=== PATIENT | male | born 1950 | race Caucasian/White ===

== ENCOUNTER 2020-03-27 10:58 | Emergency (ER) | payer MEDICARE, SELFPAY ==
[2020-03-27] VITALS (18 sets, daily range): BP systolic 113–166; BP diastolic 74–106; PULSE 68–150; RESP 12–27; TEMP 36.6; O2SAT 88–99; BMI 27.7
--- NOTE | 2020-03-27 11:04 | DI.RAD.S_ITS ---
PROCEDURE: XR CHEST 2V INDICATIONS: shortness of breath TECHNIQUE: 2 views of the chest were acquired. COMPARISON: None. FINDINGS: Surgical changes and devices: None. Lungs and pleura: There is mild pulmonary vascular congestion. No definite focal infiltrate. Left basilar atelectasis is seen. No pleural effusions or pneumothorax. Mediastinum: Mediastinal contours are normal. Heart size is normal. Bones and chest wall: No suspicious bony abnormalities. Soft tissues appear unremarkable. IMPRESSION: Mild pulmonary vascular congestion and left basilar atelectasis. No definite focal infiltrate. No pleural effusion or pneumothorax. Dictated by: Emiliano Armstrong M.D. on 03/27/2020 at 11:54 Approved by: Emiliano Armstrong M.D. on 03/27/2020 at 11:54
[2020-03-27 11:38] LABS: Add Manual Diff / Slide Review NO; Basophils Absolute Auto 100 /uL (0-100); Basophils Percent Auto 0.6 % (0-2); Eosinophils Absolute Auto 100 /uL (0-450); Eosinophils Percent Auto 1.3 % (2-4); Hematocrit 46.2 % (41-53); Hemoglobin 15.4 g/dL (13.5-17.5); Lymphocytes Absolute Auto 1700 /uL (1100-4500); Lymphocytes Percent Auto 17.6 % (25-40); Mean Corpuscular HGB Conc 33.3 % (30-36); Mean Corpuscular Hemoglobin 31.2 PG (26-34); Mean Corpuscular Volume 93.6 fL (80-100); Monocytes Absolute Auto 600 /uL (0-900); Monocytes Percent Auto 5.9 % (3-14); Neutrophils Absolute Auto 7400 /uL (1500-7000); Neutrophils Percent Auto 74.6 % (50-75); Platelet Count 181 X10^3/uL (150-400); Red Blood Cell Count 4.93 X10^6/uL (4.5-5.9); Red Cell Distribution Width 13.8 % (11.6-14.8); White Blood Cell Count 9.9 X10^3/uL (4.5-11.0)
--- NOTE | 2020-03-27 11:48 | ED.SOB ---
HPI - SOB/Dyspnea General Chief Complaint: Shortness of Breath/Dyspnea Stated Complaint: breathing issues Time Seen by Provider: 03/27/20 11:31 Source: patient Mode of arrival: Wheelchair Limitations: no limitations History of Present Illness HPI Narrative: PATIENT IS A 69-YEAR-OLD MALE WHO presents with shortness of breath ongoing for last 5-7 days. He states that he has had intermittent chest discomfort but nothing he could handle. He felt like today his breathing was getting worse. He denies any orthopnea he has had intermittent cough that is nonproductive as well no fever. No lower extremity edema Both he and his protect for COVID this week and came back negative. He is found to be in AFib with RVR, he has no known previous history of atrial fibrillation. [facility] but has not [facility] them in a number of years and states that he is healthy. MD Complaint: shortness of breath Onset (ago): day(s) Relieving factors: nothing Exacerbating factors: exertion Related Data Allergies Allergy/AdvReac Type Severity Reaction Status Date / Time No Known Drug Allergies Allergy Verified 03/27/20 11:00 Review of Systems Review of Systems Narrative: GENERAL: Denies chills, fatigue, malaise, fever, sweats, travel HEENT: Denies sinus pain, ear pain, sore throat, difficulty swallowing, neck pain RESPIRATORY: See HPI CARDIOVASCULAR: Denies chest pain, palpitations, orthopnea, edema GASTROINTESTINAL: Denies nausea, vomiting, abdominal pain, diarrhea, constipation, melena. : Denies dysuria, frequency, incontinence, hematuria, urinary retention, flank pain. MUSCULOSKELETAL: Denies weakness, joint pain, or bony pain SKIN: No rash, no erythema, no pruritus NEUROLOGIC: Denies weakness, dizziness, headache, numbness, change in speech, confusion PSYCHIATRIC: No concerning psychosocial issues. 12 point review of systems is negative except for those stated above and HPI Patient History Medical History Patient denies medical problems Social History Smoking Status: Unknown if ever smoked Smoking Status: Unknown if ever smoked alcohol intake frequency: a few times a week Substance Use Type: does not use Exam Initial Vital Signs Initial Vital Signs: Vital Signs Temperature 97.9 F 03/27/20 11:00 Pulse Rate 68 03/27/20 11:00 Respiratory Rate 17 03/27/20 11:00 Blood Pressure 131/89 03/27/20 11:00 Pulse Oximetry 94 03/27/20 11:00 GENERAL: Well-appearing, well-nourished and in no acute distress. HEENT: Head atraumatic,EOMI, pupils reactive, face symmetric, moist mucous membranes CARDIOVASCULAR: Irregularly irregular tachycardic RESPIRATORY: Breath sounds equal bilaterally, no wheezes rales or rhonchi. ABDOMEN: Soft, nontender. Normoactive bowel sounds all 4 quadrants. No guarding or rebound. EXTREMITIES: Normal range of motion, no clubbing or edema. Neurovascularly intact NEUROLOGICAL: Alert and oriented x4.Normal gait and speech. SKIN: Warm, dry, no laceration, no petechiae, no rashes or lesions. Course Orders Ordered: ED Orders 03/27/20 11:04 XR chest 2V Stat EKG-12 Lead Stat Measure peak expiratory flow ONCE RT Consult Eval and Treat Now 03/27/20 11:30 Complete Blood Count AUTO DIFF Stat Comprehensive Metabolic Panel Stat Lactate (Lactic Acid) Stat NT-proBNP (BNP-Adult 18+) Stat Troponin & CK Cardiac Panel Stat 03/27/20 12:36 COVID19 Stat 03/27/20 13:07 NT-proBNP (BNP-Adult 18+) Stat 03/27/20 15:42 Troponin I Stat 03/27/20 18:17 CT angio chest PE protocol Stat 03/27/20 18:20 Partial Thromboplastin Time Stat 03/27/20 18:30 Partial Thromboplastin Time Q6H Discontinued Medications Diltiazem HCl (Diltiazem 5 Mg/Ml Sdv) 10 mg IV NOW ONE Stop: 03/27/20 12:08 Last Admin: 03/27/20 12:19 Dose: 10 mg Documented by: MMINOR Furosemide (Furosemide 40 Mg/4 Ml Vial) 20 mg IV NOW ONE Stop: 03/27/20 12:47 Last Admin: 03/27/20 12:50 Dose: 20 mg Documented by: MMINOR Heparin Sodium (Porcine) (Heparin 5,000 Unit/Ml Vial) 7,500 unit IV NOW ONE Stop: 03/27/20 18:18 Last Admin: 03/27/20 18:21 Dose: 7,500 unit Documented by: JEFFRYSUDHAKAR DILTIAZEM (Diltiazem 125 Mg/125 Ml-D5w) 125 mg in 125 mls @ 5 mls/hr IV TITRATE BLANCA; Protocol Last Titration: 03/27/20 18:28 Dose: 10 mg/hr, 10 mls/hr Documented by: Titration: 03/27/20 14:08 Dose: 10 mg/hr, 10 mls/hr Documented by: Admin: 03/27/20 12:51 Dose: 5 mg/hr, 5 mls/hr Documented by: MMINOR Heparin Sodium/Dextrose (Heparin Drip) 25,000 unit in 500 mls @ 20 mls/hr IV CONT BLANCA; Protocol Last Titration: 03/27/20 18:29 Dose: 1,000 units/hr, 20 mls/hr Documented by: Admin: 03/27/20 18:28 Dose: 1,000 units/hr, 20 mls/hr Documented by: MMMARYR Vital Signs Vital signs: Vital Signs - 8 hr 03/27/20 11:44 03/27/20 12:00 03/27/20 12:30 Pulse Rate 150 H 133 H 130 H Respiratory Rate 27 H 16 23 Blood Pressure 166/101 H 144/89 H 140/102 H Pulse Oximetry 88 L 94 93 03/27/20 13:00 03/27/20 13:30 03/27/20 14:00 Pulse Rate 126 H 127 H 130 H Respiratory Rate 25 H 12 22 Blood Pressure 152/85 H 147/91 H Pulse Oximetry 94 95 93 03/27/20 14:30 03/27/20 14:50 03/27/20 15:00 Pulse Rate 103 H 132 H 86 Respiratory Rate 18 23 Blood Pressure 125/83 113/77 Pulse Oximetry 92 91 91 03/27/20 15:30 03/27/20 16:00 03/27/20 16:30 Pulse Rate 84 84 127 H Respiratory Rate 25 H 24 Blood Pressure 122/75 133/74 142/84 H Pulse Oximetry 91 90 L 89 L 03/27/20 17:00 03/27/20 17:30 Pulse Rate 98 H 93 H Respiratory Rate 25 H 21 Blood Pressure 116/80 121/75 Pulse Oximetry 92 91 MDM - SOB/Dyspnea Lab Data Attestation: I reviewed the patient's lab results. Result diagrams: 03/27/20 11:30 03/27/20 11:30 Labs: Lab Results 03/27/20 03/27/20 03/27/20 Range/Units 11:30 11:30 11:30 WBC 9.9 (4.5-11.0) X10^3/uL RBC 4.93 (4.5-5.9) X10^6/uL Hgb 15.4 (13.5-17.5) g/dL Hct 46.2 (41-53) % MCV 93.6 (80-100) fL MCH 31.2 (26-34) PG MCHC 33.3 (30-36) % RDW 13.8 (11.6-14.8) % Plt Count 181 (150-400) X10^3/uL Neut % (Auto) 74.6 (50-75) % Lymph % (Auto) 17.6 L (25-40) % [place] % (Auto) 5.9 (3-14) % Eos % (Auto) 1.3 L (2-4) % Baso % (Auto) 0.6 (0-2) % Neut # (Auto) 7400 H (4998-6082) /uL Lymph # (Auto) 1700 (4174-7747) /uL [place] # (Auto) 600 (0-900) /uL Eos # (Auto) 100 (0-450) /uL Baso # (Auto) 100 (0-100) /uL APTT (26.4-36.2) SECONDS Sodium 140 (137-145) mmol/L Potassium 4.2 (3.4-5.1) mmol/L Chloride 108 H (98-107) mmol/L Carbon Dioxide 23 (22-32) mmol/L BUN 19 (9-20) mg/dL Creatinine 0.88 (0.66-1.25) mg/dL Estimated GFR > 60.0 (>60) mL/min BUN/Creatinine Ratio 21.6 (6-22) Glucose 126 H (80-110) mg/dL Lactate 1.9 (0.7-2.1) mmol/L Calcium 9.1 (8.4-10.2) mg/dL Total Bilirubin 0.8 (0.2-1.3) mg/dL AST 24 (17-59) IU/L ALT 18 (<50) IU/L Alkaline Phosphatase 133 H (38-126) U/L Total Creatine Kinase (55-170) U/L CK-MB (CK-2) CK-MB (CK-2) Rel Index Troponin I (0.01-0.034) ng/mL NT-Pro-B Natriuret Pep (<125) pg/mL Total Protein 7.6 (6.3-8.2) g/dL Albumin 4.2 (3.5-5.0) g/dL Globulin 3.4 (1.7-4.1) g/dL Albumin/Globulin Ratio 1.2 (1.0-2.8) SARS-CoV-2 (PCR) (Negative) 03/27/20 03/27/20 03/27/20 Range/Units 11:30 11:30 12:36 WBC (4.5-11.0) X10^3/uL RBC (4.5-5.9) X10^6/uL Hgb (13.5-17.5) g/dL Hct (41-53) % MCV (80-100) fL MCH (26-34) PG MCHC (30-36) % RDW (11.6-14.8) % Plt Count (150-400) X10^3/uL Neut % (Auto) (50-75) % Lymph % (Auto) (25-40) % [place] % (Auto) (3-14) % Eos % (Auto) (2-4) % Baso % (Auto) (0-2) % Neut # (Auto) (9714-4762) /uL Lymph # (Auto) (3377-3064) /uL [place] # (Auto) (0-900) /uL Eos # (Auto) (0-450) /uL Baso # (Auto) (0-100) /uL APTT (26.4-36.2) SECONDS Sodium (137-145) mmol/L Potassium (3.4-5.1) mmol/L Chloride (98-107) mmol/L Carbon Dioxide (22-32) mmol/L BUN (9-20) mg/dL Creatinine (0.66-1.25) mg/dL Estimated GFR (>60) mL/min BUN/Creatinine Ratio (6-22) Glucose (80-110) mg/dL Lactate (0.7-2.1) mmol/L Calcium (8.4-10.2) mg/dL Total Bilirubin (0.2-1.3) mg/dL AST (17-59) IU/L ALT (<50) IU/L Alkaline Phosphatase (38-126) U/L Total Creatine Kinase 53 L (55-170) U/L CK-MB (CK-2) TNP CK-MB (CK-2) Rel Index TNP Troponin I 0.186 H* (0.01-0.034) ng/mL NT-Pro-B Natriuret Pep 5540 H (<125) pg/mL Total Protein (6.3-8.2) g/dL Albumin (3.5-5.0) g/dL Globulin (1.7-4.1) g/dL Albumin/Globulin Ratio (1.0-2.8) SARS-CoV-2 (PCR) Negative (Negative) 03/27/20 03/27/20 03/27/20 Range/Units 13:07 15:42 18:20 WBC (4.5-11.0) X10^3/uL RBC (4.5-5.9) X10^6/uL Hgb (13.5-17.5) g/dL Hct (41-53) % MCV (80-100) fL MCH (26-34) PG MCHC (30-36) % RDW (11.6-14.8) % Plt Count (150-400) X10^3/uL Neut % (Auto) (50-75) % Lymph % (Auto) (25-40) % [place] % (Auto) (3-14) % Eos % (Auto) (2-4) % Baso % (Auto) (0-2) % Neut # (Auto) (3772-3538) /uL Lymph # (Auto) (0221-1297) /uL [place] # (Auto) (0-900) /uL Eos # (Auto) (0-450) /uL Baso # (Auto) (0-100) /uL APTT 30 (26.4-36.2) SECONDS Sodium (137-145) mmol/L Potassium (3.4-5.1) mmol/L Chloride (98-107) mmol/L Carbon Dioxide (22-32) mmol/L BUN (9-20) mg/dL Creatinine (0.66-1.25) mg/dL Estimated GFR (>60) mL/min BUN/Creatinine Ratio (6-22) Glucose (80-110) mg/dL Lactate (0.7-2.1) mmol/L Calcium (8.4-10.2) mg/dL Total Bilirubin (0.2-1.3) mg/dL AST (17-59) IU/L ALT (<50) IU/L Alkaline Phosphatase (38-126) U/L Total Creatine Kinase (55-170) U/L CK-MB (CK-2) CK-MB (CK-2) Rel Index Troponin I 0.236 H* (0.01-0.034) ng/mL NT-Pro-B Natriuret Pep 5810 H (<125) pg/mL Total Protein (6.3-8.2) g/dL Albumin (3.5-5.0) g/dL Globulin (1.7-4.1) g/dL Albumin/Globulin Ratio (1.0-2.8) SARS-CoV-2 (PCR) (Negative) Imaging Data Chest x-ray: Radiologist's Impression: PROCEDURE: XR CHEST 2V INDICATIONS: shortness of breath TECHNIQUE: 2 views of the chest were acquired. COMPARISON: None. FINDINGS: Surgical changes and devices: None. Lungs and pleura: There is mild pulmonary vascular congestion. No definite focal infiltrate. Left basilar atelectasis is seen. No pleural effusions or pneumothorax. Mediastinum: Mediastinal contours are normal. Heart size is normal. Bones and chest wall: No suspicious bony abnormalities. Soft tissues appear unremarkable. IMPRESSION: Mild pulmonary vascular congestion and left basilar atelectasis. No definite focal infiltrate. No pleural effusion or pneumothorax. Dictated by: Emiliano Armstrong M.D. on 03/27/2020 at 11:54 Approved by: Emiliano Armstrong M.D. on 03/27/2020 at 11:54 CT scan - chest: Radiologist's Impression: PROCEDURE: CT ANGIO CHEST PE PROTOCOL INDICATIONS: hypoxia TECHNIQUE: After the administration of intravenous contrast, 2 mm thick sections acquired from the pulmonary apices to the posterior costophrenic angles. 3-dimensional maximum intensity projection (MIP) coronal and sagittal reformats were then acquired through the thorax. For radiation dose reduction, the following was used: automated exposure control, adjustment of mA and/or kV according to patient size. COMPARISON: [facility], CR, XR CHEST 2V, 03/27/2020, 11:28. FINDINGS: Image quality: Excellent. Pulmonary arteries: Pulmonary arteries are normal in size. Multiple filling defects are seen in bilateral distal main pulmonary arteries extending to bilateral segmental insect segmental branches of pulmonary arteries consistent with extensive bilateral pulmonary emboli. Lungs and pleura: Scarring/atelectasis in posterior and lateral periphery of bilateral lung bases. No pleural effusions or pneumothorax. Central and peripheral airways are patent. Mediastinum: Heart size is borderline enlarged, without pericardial effusion. No mediastinal or hilar adenopathy. Thoracic aorta is normal in caliber and enhancement. Esophagus is normal in caliber, with a small hiatal hernia. Bones and chest wall: No suspicious bony lesions. Ribs and thoracic spine appear intact throughout. Thyroid gland is within normal limits. No axillary or supraclavicular adenopathy. Abdomen: Visualized upper abdominal solid organs appear normal in the early arterial phase of enhancement. IMPRESSION: 1. Extensive pulmonary emboli involving distal bilateral main pulmonary arteries extending to segmental and subsegmental branches of bilateral upper and lower lobe pulmonary arteries and right middle lobe pulmonary artery. 2. No thoracic aortic aneurysm or dissection. 3. Scarring/atelectasis scattered in bilateral lower lung guzmán. No pleural effusion or pneumothorax. Airway is patent. 4. No gross mediastinal or hilar lymphadenopathy. Dictated by: Emiliano Armstrong M.D. on 03/27/2020 at 18:24 ECG Data Attestation: I personally reviewed and interpreted this ECG as follows: Prior ECG tracings: not available for review Interpretation: AFib with RVR rate [address] changes MDM Narrative Medical decision making narrative: Patient's troponin is in the positive range cut off here is 0.12. This is likely secondary to AFib with RVR for the last 6 days. The patient is placed on a Cardizem drip heart rate is significantly per improved. BNP is elevated at 55 likely secondary to new onset AFib with tachycardia he is given 1 dose of Lasix he has urinated few times. Breathing has overall improved. I have discussed case with hospitalist Dr. Krishna, recommends that patient be transferred to [facility] with elevated troponin. Dr. Davila updated in patient's symptoms test results and accepts patient for transfer Patient transferred to the ambulance [facility] O2 sat dropped into the low 80s. Concern for PE. Patient is brought back to the emergency department and taken to the CT scanner. It is confirmed that patient has. Bilateral extensive pulmonary embolism not saddle. Blood pressure has remained stable but O2 has decreased some. He is treated immediately on heparin drip. I have called over to the scanned supervisor powdered sugar and updated her on recent developments. She has sent message to the hospitalist to will call me if there are questions. Discharge Plan Departure Patient Disposition: [facility] Clinical Impression: Atrial fibrillation with RVR, Patient denies medical problems
[2020-03-27 11:49] LABS: Lactate (Lactic Acid) 1.9 mmol/L (0.7-2.1)
[2020-03-27 11:50] LABS: Alanine Aminotransferase 18 IU/L (<50); Albumin 4.2 g/dL (3.5-5.0); Albumin Globulin Ratio 1.2 (1.0-2.8); Alkaline Phosphatase 133 U/L (38-126); Aspartate Aminotransferase 24 IU/L (17-59); BUN Creatinine Ratio 21.6 (6-22); Bilirubin Total 0.8 mg/dL (0.2-1.3); Blood Urea Nitrogen 19 mg/dL (9-20); Calcium 9.1 mg/dL (8.4-10.2); Carbon Dioxide 23 mmol/L (22-32); Chloride 108 mmol/L (98-107); Estimated Glomerular Filt Rate > 60.0 mL/min (>60); Globulin 3.4 g/dL (1.7-4.1); Glucose 126 mg/dL (80-110); HEMOLYSIS < 15 (0-50); Potassium 4.2 mmol/L (3.4-5.1); Sodium 140 mmol/L (137-145); Total Protein 7.6 g/dL (6.3-8.2)
[2020-03-27] MEDS: dilTIAZem 5 MG/ML SDV 10 MG IV (12:19)
[2020-03-27 12:30] LABS: NT-proBNP (BNP-Adult 18+) 5540 pg/mL (<125)
[2020-03-27] MEDS: FUROSEMIDE 40 MG/4 ML VIAL 20 MG IV (12:50)
[2020-03-27] MEDS: DILTIAZEM 125 MG/125 ML PIGGYBACK IV (12:51)
[2020-03-27 12:55] LABS: COVID19 -Nasal RAPID Negative (Negative)
[2020-03-27 13:16] LABS: Creatine Kinase 53 U/L (55-170)
[2020-03-27 13:44] LABS: NT-proBNP (BNP-Adult 18+) 5810 pg/mL (<125)
[2020-03-27 14:14] LABS: Troponin I 0.186 ng/mL (0.01-0.034)
[2020-03-27 16:14] LABS: Troponin I 0.236 ng/mL (0.01-0.034)
--- NOTE | 2020-03-27 17:55 | PC.NURSE ---
report to MATTHEW Worley at [facility] [phone]
--- NOTE | 2020-03-27 18:17 | DI.CT.S_ITS ---
PROCEDURE: CT ANGIO CHEST PE PROTOCOL INDICATIONS: hypoxia TECHNIQUE: After the administration of intravenous contrast, 2 mm thick sections acquired from the pulmonary apices to the posterior costophrenic angles. 3-dimensional maximum intensity projection (MIP) coronal and sagittal reformats were then acquired through the thorax. For radiation dose reduction, the following was used: automated exposure control, adjustment of mA and/or kV according to patient size. COMPARISON: [facility], , XR CHEST 2V, 03/27/2020, 11:28. FINDINGS: Image quality: Excellent. Pulmonary arteries: Pulmonary arteries are normal in size. Multiple filling defects are seen in bilateral distal main pulmonary arteries extending to bilateral segmental insect segmental branches of pulmonary arteries consistent with extensive bilateral pulmonary emboli. Lungs and pleura: Scarring/atelectasis in posterior and lateral periphery of bilateral lung bases. No pleural effusions or pneumothorax. Central and peripheral airways are patent. Mediastinum: Heart size is borderline enlarged, without pericardial effusion. No mediastinal or hilar adenopathy. Thoracic aorta is normal in caliber and enhancement. Esophagus is normal in caliber, with a small hiatal hernia. Bones and chest wall: No suspicious bony lesions. Ribs and thoracic spine appear intact throughout. Thyroid gland is within normal limits. No axillary or supraclavicular adenopathy. Abdomen: Visualized upper abdominal solid organs appear normal in the early arterial phase of enhancement. IMPRESSION: 1. Extensive pulmonary emboli involving distal bilateral main pulmonary arteries extending to segmental and subsegmental branches of bilateral upper and lower lobe pulmonary arteries and right middle lobe pulmonary artery. 2. No thoracic aortic aneurysm or dissection. 3. Scarring/atelectasis scattered in bilateral lower lung guzmán. No pleural effusion or pneumothorax. Airway is patent. 4. No gross mediastinal or hilar lymphadenopathy. Dictated by: Emiliano Armstrong M.D. on 03/27/2020 at 18:24 Approved by: Emiliano Armstrong M.D. on 03/27/2020 at 18:29
[2020-03-27] MEDS: ONDANSETRON 4 MG/2 ML INJ (18:20)
[2020-03-27] MEDS: HEPARIN 5,000 UNIT/ML VIAL 7500 UNIT IV (18:21)
[2020-03-27] MEDS: HEPARIN DRIP 25,000 UNIT/500 ML IV.SOLN 20 UNIT IV (18:28)
--- NOTE | 2020-03-27 18:32 | PC.NURSE ---
pt became very hypoxic whent transferred to EMS [facility], O2 applied, 2nd IV started by EMS and Angio CT performed. updated report called to MATTHEW Worley at [facility] [phone]
[2020-03-27 18:34] LABS: PTT Partial Thromboplastin Tim 30 SECONDS (26.4-36.2)
--- OUTSIDE RECORDS SUMMARY | 2020-05-26 17:10 | XMS_ITS | Referral Summary ---
:1950 Author Organization [facility] Address [address] [place] [address] Care Team Providers Name Role Phone Meza Primary Care Provider Reason for Referral Consultation (Routine) Status Reason Specialty Diagnoses / Referred By Referred To Procedures Contact Contact Authorized Specialty Hematology Diagnoses Acute saddle pulmonary embolism with acute cor pulmonale (CMS/HCC) [facility] CLIENT OPERATIONS MANAGER [address] Required [address] [facility] [address] [id number] 300 Phone: [place], [phone] [place] [address] Electronically signed by Jose G CARDOZA at Reason for Visit Reason Comments Atrial Fibrillation Congestive Heart Failure Hospital Discharge Follow-up Encounter Details Date Type Department Care Team Description 05/22/2020 Office Visit [facility] Jose G Duke, NSTEMI (n on-ST elevated myocardial infarction) (CMS/HCC) (Primary Dx); Clinics Cardiology [facility] Acute saddle pulmonary embolism with acu te cor pulmonale (CMS/HCC); [place] [address] Other cardiomyopathy (CMS/HC C) [address] [place] [address] [address] [place] [id number] Allergies No Known Active Allergiesdocumented as of this encounter (statuses as of 05/26/2020) Medications Medication Sig Dispensed Refills Start Date End Date Status atorvastatin Take 1 90 tablet 3 05/22/2020 Active (LIPITOR) 40 mg tablet (40 2 tablet mg total) by mouth nightly clopidogreL Take 1 90 tablet 3 05/22/2020 Active (PLAVIX) 75 mg tablet (75 2 tablet mg total) by mouth daily lisinopriL Take 1 90 tablet 3 05/22/2020 Active (PRINIVIL) 10 mg tablet (10 2 tablet mg total) by mouth daily rivaroxaban Take 1 90 tablet 3 05/22/2020 Active (XARELTO) 20 mg tablet (20 2 tablet mg total) by mouth daily spironolactone Take 0.5 45 tablet 3 05/22/2020 Acti ve (ALDACTONE) 25 mg tablets 2 tablet (12.5 mg total) by mouth daily metoprolol Take 1 180 tablet 3 05/22/2020 Active succinate XL tablet (25 2 (TOPROL-XL) 25 mg mg total) by 24 hr tablet mouth 2 (two) times a day lisinopriL Take 1 30 tablet 11 04/04/2020 Disconti nued (PRINIVIL) 5 mg tablet (5 mg 1 ( Reorder) tablet total) by mouth daily metoprolol tartrate Take 1 60 tablet 11 04/03/2020 Discontinued (LOPRESSOR) 25 mg tablet (25 1 ( Therapy tablet mg total) by complet ed) mouth 2 (two) times a day atorvastatin Take 1 30 tablet 11 04/05/2020 Discon tinued (LIPITOR) 40 mg tablet (40 1 (Re order) tablet mg total) by mouth nightly clopidogreL Take 1 30 tablet 11 04/06/2020 Discont inued (PLAVIX) 75 mg tablet (75 1 (Reo rder) tablet mg total) by mouth daily spironolactone Take 0.5 15 tablet 11 04/06/2020 Disc ontinued (ALDACTONE) 25 mg tablets 1 (R eorder) tablet (12.5 mg total) by mouth daily rivaroxaban Take 1 30 tablet 0 04/19/2020 Discont inued (XARELTO) 20 mg tablet (20 1 (Re order) tablet mg total) by mouth daily documented as of this encounter (statuses as of 05/26/2020) Active Problems Problem Noted Date Acute saddle pulmonary embolism with acute cor pulmona le 03/28/2020 documented as of this encounter (statuses as of 05/26/2020) Social History Tobacco Use Types Packs/Day Years Used Date Never Smoker Smokeless Tobacco: Never Used Alcohol Use Drinks/Week oz/Week Comments Yes 3-4x week---1 mi xed or beer Sex Assigned at Date Recorded Not on file Job Start Date Occupation Industry Not on file Not on file Not on file documented as of this encounter Last Filed Vital Signs Vital Sign Reading Time Taken Comments Blood Pressure 114/68 05/22/2020 8:59 AM PST Pulse 67 05/22/2020 8:59 AM PST Temperature - - Respiratory Rate - - Oxygen Saturation - - Inhaled Oxygen Concentration - - Weight 112 kg (247 lb 12.8 oz) 05/22/2020 8:59 AM PST Height 195.6 cm (6' 5) 05/22/2020 8:59 AM PST Body Mass Index 29.38 05/22/2020 8:59 AM PST documented in this encounter Patient Instructions Patient InstructionsJose G Duke ARNP - 05/22/2020 9:00 AM PST- Increase lisinopril from 5 mg daily to 10 mg daiy (2 tablets daily until refill then 1 tablet daily) - Get labs drawn (BMP and lipid panel) in 5-7 days - Monitor your weight, blood pressure and heart rate each morning and keep a record - Follow up by phone for medication and lab review in 2 weeks - We have placed a referral for hematology (your insurance may want this to come from your primary care provider) - Establish care with a primary care provider documented in this encounter Progress Notes Jose G Duke ARNP - 05/22/2020 9:00 AM PST Subjective Patient ID: Brennen Parker is a 69 y.o. male that had no chief complaint listed for this encounter. HPI: Dax is a delightful 69-year-old man who was introduced to cardiology during hospitalization for acute saddle pulmonary embolism with cor pulmonale and NSTEMI. [facility] emergencydepartment on 03/27/2020 complaining of 6 days of progressive shortness of breath in addition to inte rmittent left chest pain. He was found to be in atrial fibrillation at 135 bpm without known history of A. fib. Troponin I was elevated at 0.186 and trended up, 0.236 and NT proBNP was 5540 then 5810. Breathing improved with IV Lasix. He was given IV diltiazem. CT angio chest PE protocol showed extensive pulmonary emboli involving distal bilateral main pulmonary arteries extending to segmental and subsegmental branches of bilateral upper and lower lobe, pulmonary arteries and right middle lobe pulmonary artery. Patient was transferred to [facility]. He underwent EKOS procedure, was treated with heparin drip then changed to Xarelto 15 mg twice daily for 21 days then 20 mg daily. E chocardiogram 03/28/2020 showed a moderately reduced left ventricular systolic function of 35 to 40%.Stress test was abnormal and Dr. Scout Jon provided cardiology consultation on 04/03/2020. Cardiacrecommendations were to change metoprolol tartrate 25 mg twice daily to metoprolol succinate 25 mg twice daily, Plavix 75 mg daily after loading, Xarelto as above, spironolactone 12.5 mg daily and lisinopril with a target dose of 20 to 40 mg daily. With his history Dax comes to the clinic with accompanied by his for follow-up. He is currently taking lisinopril 5 mg daily and remains on metoprolol tartrate 25 mg twice daily. Since hospital discharge, Dax has taken his medications faithfully. He is tolerating them well. He has experienced some positional left chest discomfort that he attributes to overuse. The discomfort is nothing like what he experienced prior to admission. He denies any shortness of breath at rest and reports exertional dyspnea has been steadily improving. He has not noticed swelling however states some weight gain bringing him back to his preadmission weight. He denies any cough. He endorses easy bruising. Neither the patient nor his are able to identify any precipitating factors. He reports that he was elk hunting in January and banged up his legs a bit but does not recall any significant injury. Dax lives at home with his Trice. He has never smoked. He enjoys one beer a night. He is active and they are currently remodeling his childhood home in [place]. The patient himself isn't doing the majority of the work but does report getting winded when cleaning up. He otherwise has no complaints. Past Medical History: Diagnosis Date ??? Arrhythmia ??? CHF (congestive heart failure) (CMS/HCC) ??? Coronary artery disease ??? Dilated cardiomyopathy (CMS/HCC) ??? Murmur slight....no studies Past Surgical History: Procedure Laterality Date ??? COLONOSCOPY x2 ??? NC COLONOSCOPY FLX DX W/COLLJ SPEC WHEN PFRMD N/A 06/20/2017 Procedure: COLONOSCOPY; Surgeon: Juan Borges MD; Location: [facility] OR; Service: Gastroenterology ??? TONSILLECTOMY Family History Problem Relation Age of Onset ??? Heart failure Father 85 CHF Social History Socioeconomic History ??? Marital status: Spouse name: Not on file ??? Number of children: Not on file ??? Years of education: Not on file ??? Highest education level: Not on file Occupational History ??? Not on file Tobacco Use ??? Smoking status: Never Smoker ??? Smokeless tobacco: Never Used Substance and Sexual Activity ??? Alcohol use: Yes Comment: 3-4x week---1 mixed or beer ??? Drug use: No ??? Sexual activity: Not on file Other Topics Concern ??? Not on file Social History Narrative ??? Not on file Social Determinants of Health Financial Resource Strain: ??? Difficulty of Paying Living Expenses: Food Insecurity: ??? Worried About Running Out of Food in the Last Year: ??? Ran Out of Food in the Last Year: Transportation Needs: ??? Lack of Transportation (Medical): ??? Lack of Transportation (Non-Medical): Physical Activity: ??? Days of Exercise per Week: ??? Minutes of Exercise per Session: Stress: ??? Feeling of Stress : Social Connections: ??? Frequency of Communication with Friends and Family: ??? Frequency of Social Gatherings with Friends and Family: ??? Attends [employer] Services: ??? Active Member of Clubs or Organizations: ??? Attends Club or Organization Meetings: ??? Marital Status: No Known Allergies Current Medication List Sig atorvastatin (LIPITOR) 40 mg tablet Take 1 tablet (40 mg total) by mouth nightly clopidogreL (PLAVIX) 75 mg tablet Take 1 tablet (75 mg total) by mouth daily lisinopriL (PRINIVIL) 10 mg tablet Take 1 tablet (10 mg total) by mouth daily rivaroxaban (XARELTO) 20 mg tablet Take 1 tablet (20 mg total) by mouth daily spironolactone (ALDACTONE) 25 mg tablet Take 0.5 tablets (12.5 mg total) by mouth daily atorvastatin (LIPITOR) 40 mg tablet (Discontinued) Take 1 tablet (40 mg total) by mouth nightly clopidogreL (PLAVIX) 75 mg tablet (Discontinued) Take 1 tablet (75 mg total) by mouth daily lisinopriL (PRINIVIL) 5 mg tablet (Discontinued) Take 1 tablet (5 mg total) by mouth daily metoprolol tartrate (LOPRESSOR) 25 mg tablet (Discontinued) Take 1 tablet (25 mg total) by mouth 2 (two) times a day rivaroxaban (XARELTO) 20 mg tablet (Discontinued) Take 1 tablet (20 mg total) by mouth daily spironolactone (ALDACTONE) 25 mg tablet (Discontinued) Take 0.5 tablets (12.5 mg total) by mouth daily metoprolol succinate XL (TOPROL-XL) 25 mg 24 hr tablet Take 1 tablet (25 mg total) by mouth 2 (two)times a day Review of Systems Constitutional: Negative for chills, fatigue and fever. Respiratory: Negative for cough, chest tightness and shortness of breath. Cardiovascular: Negative for chest pain, palpitations and leg swelling. Gastrointestinal: Negative for abdominal pain, anal bleeding and blood in stool. Genitourinary: Negative for hematuria. Musculoskeletal: Negative for arthralgias and myalgias. Neurological: Negative for dizziness, syncope, weakness and light-headedness. Hematological: Bruises/bleeds easily. Psychiatric/Behavioral: The patient is not nervous/anxious. Objective BP 114/68 (BP Location: Left arm, Patient Position: Sitting) Pulse 67 Ht 1.956 m Wt 112 kg BMI 29.38 kg/m?? Physical Exam: General Appearance: Alert, pleasant, cooperative, no apparent distress HENT: No obvious jaundice, no xanthelasma Neck: No obvious JVD Respiratory: Clear but slightly diminished on the right, no rales or wheeze Cardiovascular: Irregularly irregular rhythm, normal rate. Variable S1. S2 normal. No significant murmur Pulses: No carotid bruit, no obvious abdominal bruit, no evidence of critical limb ischemia Abdomen: Nontender, no hepatosplenomegaly, no obvious pulsatile mass Extremities: Trace pitting edema; L>R. No clubbing or cyanosis. Neuro: Alert oriented to time place and person, no obvious motor or sensory deficit. Psych: Appropriate affect, normal mentation and memory Skin: No gangrene or ulcer STUDIES: Echocardiogram 28 Mar 2020 Interpretation Summary 1) Upper normal left ventricular size with moderately reduced systolic function (EF 35-40%). 2) Severely enlarged right ventricle with mildly to moderately reduced systolic function. Magallanes's sign present. 3) Inferolateral wall and mid anterolateral are hypokinetic. Basal inferior wall also appears akinetic (but it could be artifactual). 4) The interventricular septum is flattened, consistent with a right ventricular pressure overload condition. 5) No significant valvular abnormalities. 6) The right ventricular systolic pressure is estimated to be at least 60 mmHg based on an estimated right atrial pressure of 15 mm Hg. 7) No prior Echo available for comparison. Findings consistent with acute cor pulmonale and ischemic heart disease. Bilateral EKOS Treatment 28 Mar 2020 POST PROCEDURE DIAGNOSIS: 1. Sub massive bilateral pulmonary emboli, with right heart strain 2. Status post initiation of bilateral catheter directed pulmonary thrombolysis using bilateral EKOSultrasound assisted multi-sidehole infusion catheters to treat massive PE Bilateral Lower Extremity Venous Ultrasound 29 Mar 2020 IMPRESSION: 1. Superficial and deep venous thrombosis in right lower extremity veins as described above. 2. No evidence of DVT in visualized left lower extremity veins. Stress Test 2020 Interpretation Summary Abnormal high risk pharmacologic stress test [facility] myocardial perfusion imaging. Large severe minimally reversible inferior and inferolateral perfusion defect consistent with mostly completed infarct in the LCX distribution. Abnormal EKG with deep symmetric TWI. Echocardiogram 04 Apr 2020 Interpretation Summary -Left ventricular systolic function appears moderately depressed with an estimated ejection fraction of 35 to 40% with mild global hypokinesis, worse in the proximal to mid inferolateral and proximal inferior haynes, extending into the lateral wall which appears unchanged from the previous study. The left ventricle is moderately enlarged and appears slightly larger compared to the previous study. There is likely a relaxation abnormality with normal filling pressures, similar to the previous study. ??-The right ventricle is mildly enlarged and mildly hypokinetic but markedly smaller and more dynamic compared to the previous study. Right ventricular systolic pressure cannot be accurately estimated but CVP is likely around 3 mmHg, significantly lower compared to the previous exam. ??-The left atrium remains normal in size and the right atrium is moderately enlarged but smaller compared to the previous study. ??-There is no significant valvular abnormality. There is only trivial tricuspid regurgitation that is significantly improved compared to the previous exam. ??-The aortic root is mildly enlarged and measures slightly larger compared to the previous study with borderline enlargement of the ascending aorta which is Unchanged. Labs 28 Mar 2020 Lipid panel:CHOL/HDL 2.9, total cholesterol 165, HDL 56, LDL 91, triglycerides 88. 04 Apr 2020 CMP: Sodium 136, potassium 4.5, chloride 103, CO2 21, BUN 21.0, creatinine 0.83, BUN/creatinine ratio 25.3, GFR 89, glucose 93, calcium 8.8, phosphorus 4.0, magnesium 2.2, albumin 3.8. ECG 22 May 2020 Atrial fibrillation, 67 bpm with PVC Assessment/Plan Diagnoses and all orders for this visit: NSTEMI (non-ST elevated myocardial infarction) ([facility]) - ECG 12 Lead (Clinic - Same Day) - Basic metabolic panel; Future - Lipid panel; Future Acute saddle pulmonary embolism with acute cor pulmonale ([facility]) - Basic metabolic panel; Future - Lipid panel; Future - XTRNL Referral to Hematology Other cardiomyopathy ([facility]) - Basic metabolic panel; Future - Lipid panel; Future Other orders - atorvastatin (LIPITOR) 40 mg tablet; Take 1 tablet (40 mg total) by mouth nightly - clopidogreL (PLAVIX) 75 mg tablet; Take 1 tablet (75 mg total) by mouth daily - lisinopriL (PRINIVIL) 10 mg tablet; Take 1 tablet (10 mg total) by mouth daily - rivaroxaban (XARELTO) 20 mg tablet; Take 1 tablet (20 mg total) by mouth daily - spironolactone (ALDACTONE) 25 mg tablet; Take 0.5 tablets (12.5 mg total) by mouth daily - metoprolol succinate XL (TOPROL-XL) 25 mg 24 hr tablet; Take 1 tablet (25 mg total) by mouth 2(two) times a day Assessment/Plan Comments: Dax comes to the clinic today for follow-up after hospitalization for acute saddle pulmonary embolism with cor pulmonale and NSTEMI. He is clinically compensated. He denies shortness of breath at rest and reports improving exertional dyspnea over the past several weeks. He denies cough. Echocardio grams 03/28/2020 and again 04/04/2020 showed moderately reduced systolic function of 35 to 40%. He was discharged from the hospital on guideline directed medical therapy for cardiomyopathy in addition to anticoagulation with Xarelto and antiplatelet therapy with Plavix. Dr. Jon recommended Xarelto 15 mg twice daily for 21 days then 20 mg daily which he is currently taking in addition to changing from metoprolol tartrate 25 mg twice daily to metoprolol succinate 25 mg twice daily. We will make that change today. Target dose for lisinopril was 20 mg to 40 mg daily. Patient is currently taking 5 mg daily. Will increase lisinopril to 10 mg daily and check a BMP in 5 to 7 days. LDL was 91 on 2020. Patient was placed on atorvastatin 40 mg daily. We will get a updated lipid panel. He is encouraged to monitor his weight, blood pressure and heart rate at home. We will review labs, medications and vitals log via telemedicine telephone appointment in 2 weeks. Plan is to titrate heart failure medications to target doses. With regard to the pulmonary embolism, Bill cannot identify any precipitating factor(s). He is taking Xarelto 20 mg daily without mention of a stop date however patient is in atrial fibrillation therefore anticoagulation is indefinte. A referral is placed for hematology. He does not have a primary c are provider and is encouraged to reestablish care. Plan: - Increase lisinopril from 5 to 10 mg daily - Change from lopressor to Toprol XL 25 mg BID - BMP in 5-7 days - Hematology consultation - Establish care with PCP - Monitor weight, BP, HR at home - Follow up in 2 weeks for HF medication titration This note was generated utilizing voice recognition software.?? While attempts have been made to correct mistakes, common errors may occur, including substitution of words that sound phonetically similar to the intended word as well as random substitution errors.?? Please take this into consideration and use clinical context when necessary. Electronically signed by SONY Saxena 05/22/2020 11:03 AM documented in this encounter Plan of Treatment Upcoming Encounters Date Type Specialty Care Team Description 06/06/2020 Telemedicine Cardiology Jose G Duke, SONY [address] [place] [address] [phone] Scheduled Orders Name Type Priority Associated Diagnoses Order S chedule Basic metabolic panel Lab Routine NSTEMI (non-ST elev ated Expected: 05/22/2020, myocardial infarction) Expir es: 05/22/2021 (CMS/HCC) Acute saddle pulmonary embolism with acute cor pulmonale (CMS/H CC) Other cardiomyopathy (CMS/HCC) Lipid panel Lab Routine NSTEMI (non-ST elevated Expe cted: 05/22/2020, myocardial infarction) Expir es: 05/22/2021 (CMS/HCC) Acute saddle pulmonary embolism with acute cor pulmonale (CMS/H CC) Other cardiomyopathy (CMS/HCC) Scheduled Referrals Name Type Priority Associated Order Schedule Diagnoses XTRNL Referral to Outpatient Referral Routine Acute saddle Ord ered: Hematology pulmonary embolism with acute cor pulmonale (CMS/HCC) documented as of this encounter Procedures Procedure Name Priority Date/Time Associated Diagnosis Comme nts ECG 12-LEAD Routine 05/22/2020 11:10 AM NSTEMI (non-ST Result s for this PST elevated myocardial procedur e are in the infarction) (CMS/HCC) result s section. documented in this encounter Results ECG 12 Lead (Clinic - Same Day) (05/22/2020 11:10 AM PST) Narrative Performed At This result has an attachment that is no t available. documented in this encounter Visit Diagnoses Diagnosis NSTEMI (non-ST elevated myocardial infar ction) (CMS/HCC) - Primary Acute myocardial infarction, subendocard ial infarction, episode of care unspecified Acute saddle pulmonary embolism with acu te cor pulmonale (CMS/HCC) Other cardiomyopathy (CMS/HCC) documented in this encounter Insurance Payer Benefit Plan / Subscriber ID Effective Dates Phone Addre ss Type Group [facility] MEDADVANTAGE [id number] 2019-Present MEDICARE MANAGED documented as of this encounter Advance Directives Documents on File Type Date Recorded Patient Chiropractic Assistant Explanati on Advance Directives and Living Will Latest Code Status on File Code Status Date Activated Date Inactivated Comments Full Code 03/27/2020 7:29 PM 04/05/2020 1:04 PM Full Code 06/20/2017 6:53 AM 06/20/2017 6:56 AM Full Code 06/20/2017 6:53 AM 06/20/2017 6:53 AM
== END 2020-03-27 18:37 | disposition short-term general hospital (02) ==
PROVIDERS: Emergency Provider Emergency Medicine
DX: I48.91 Unspecified atrial fibrillation (principal); R07.9 Chest pain, unspecified; Z20.828 Contact with and (suspected) exposure to other viral communicable diseases; R09.02 Hypoxemia
CPT/HCPCS: 36415; 71046; 71275; 80053; 82550; 83605; 83880; 84484; 85025; 85730; 87635; 93005; 96365; 96366; 96375; 99284; 99285; 99291; 99292; J1644; J1940; J2405; Q9967

== ENCOUNTER → 2020-05-27 08:59 | Outpatient (CLI) | payer MEDICARE, SELFPAY ==
[2020-05-27 13:22] LABS: BUN Creatinine Ratio 20.2 (6-22); Blood Urea Nitrogen 20 mg/dL (9-20); Carbon Dioxide 23 mmol/L (22-32); Chloride 105 mmol/L (98-107); Cholesterol 121 mg/dL (140-199); Estimated Glomerular Filt Rate > 60.0 mL/min (>60); Glucose 125 mg/dL (80-110); HDL Cholesterol 55 mg/dL (40-60); HEMOLYSIS < 15 (0-50); LDL Cholesterol Calculated 50 mg/dL (<100); Potassium 4.6 mmol/L (3.4-5.1); Sodium 135 mmol/L (137-145); Triglycerides 79 mg/dL (35-150)
== END ==
PROVIDERS: PCP Student in an Organized Health Care Education/Training Program; Referring Provider Nurse Practitioner; Visit Provider Nurse Practitioner
DX: I21.4 Non-ST elevation (NSTEMI) myocardial infarction (principal); I26.02 Saddle embolus of pulmonary artery with acute cor pulmonale; I42.8 Other cardiomyopathies
CPT/HCPCS: 36415; 80048; 80061

== ENCOUNTER → 2020-06-11 10:48 | Outpatient (CLI) | payer MEDICARE, SELFPAY ==
[2020-06-11 12:04] LABS: BUN Creatinine Ratio 21.3 (6-22); Blood Urea Nitrogen 20 mg/dL (9-20); Calcium 8.9 mg/dL (8.4-10.2); Carbon Dioxide 25 mmol/L (22-32); Chloride 104 mmol/L (98-107); Estimated Glomerular Filt Rate > 60.0 mL/min (>60); Glucose 103 mg/dL (80-110); HEMOLYSIS < 15 (0-50); Potassium 4.2 mmol/L (3.4-5.1); Sodium 134 mmol/L (137-145)
== END ==
PROVIDERS: PCP Student in an Organized Health Care Education/Training Program; Referring Provider Nurse Practitioner; Visit Provider Nurse Practitioner
DX: I42.8 Other cardiomyopathies (principal); I26.02 Saddle embolus of pulmonary artery with acute cor pulmonale; I21.4 Non-ST elevation (NSTEMI) myocardial infarction
CPT/HCPCS: 36415; 80048

== ENCOUNTER → 2020-08-14 13:51 | Outpatient (CLI) | payer MEDICARE, SELFPAY ==
[2020-08-14 14:55] LABS: BUN Creatinine Ratio 21.9 (6-22); Blood Urea Nitrogen 21 mg/dL (9-20); Calcium 8.9 mg/dL (8.4-10.2); Carbon Dioxide 22 mmol/L (22-32); Chloride 107 mmol/L (98-107); Estimated Glomerular Filt Rate > 60.0 mL/min (>60); Glucose 149 mg/dL (80-110); HEMOLYSIS < 15 (0-50); Potassium 4.1 mmol/L (3.4-5.1); Sodium 136 mmol/L (137-145)
== END ==
PROVIDERS: PCP Student in an Organized Health Care Education/Training Program; Referring Provider Nurse Practitioner; Visit Provider Nurse Practitioner
DX: I48.91 Unspecified atrial fibrillation (principal); I42.8 Other cardiomyopathies
CPT/HCPCS: 36415; 80048

== ENCOUNTER → 2020-09-03 15:50 | Outpatient (CLI) | payer MEDICARE, SELFPAY ==
--- NOTE | 2020-09-03 | DI.ECHO.S_ITS ---
[facility]---------[facility] +---------+ : : [address] : [place] : : : : [id number] : : : : Phone: [phone]+ Echocardiogram Report + + :Name: TALYA STEPHENS Study Date: 09/03/2020 Height: 77 in : :[facility] ReadingLocation: Weight: 222 lb : : Gender: Male BSA: 2.3 m2 : :: 1950 Age: 70 yrs BP: 106/60 mmHg: :Reason For Study: ATRIAL FIBRILLATION : :Ordering Physician: CECE, : :GINNY Regan Performed By: Donita Gillespie : :Referring: GINNY ZHAO : + + Interpretation Summary The left ventricle is mild-moderately dilated. The ejection fraction is estimated to be 40-45%. Left ventricular systolic function has mildly improved compared to the previous exam. There is akinesis of mid to distal anterolateral wall extending into the mid to distal inferior lateral wall as well as mid to distal anterior wall without any significant change from the previous study. The right ventricle is mildly dilated. The right ventricular systolic function is normal. Right ventricular systolic function has increased since previous exam. The IVC is of normal diameter and collapses greater than 50% with a sniff. This suggests a low right atrial pressure of 3 mm Hg. Procedure: A two-dimensional transthoracic echocardiogram with color flow and Doppler was performed. The study quality was technically adequate. Comparison is made with the echocardiogram of 04/04/2020. The patient had occasional PVCs during the exam. The heart rate ranged between 44-53 bpm during the study. The patient was in sinus bradycardia with heart rates between 44-53 bpm during the exam. The patient had frequent PACs during the exam. Left Ventricle: There is normal left ventricular wall thickness. The left ventricle is mild-moderately dilated. The estimated left ventricular end diastolic volume is 160 ml. There is no thrombus. A false chord is noted (normal variant). The ejection fraction is estimated to be 40-45%. Left ventricular systolic function has mildly improved compared to the previous exam. There is akinesis of mid to distal anterolateral wall extending into the mid to distal inferior lateral wall as well as mid to distal anterior wall without any significant change from the previous study. Right Ventricle: The right ventricle is mildly dilated. The right ventricular systolic function is normal. Right ventricular systolic function has increased since previous exam. Atria: The left atrial size is normal. The left atrium has remained unchanged in size since the prior echo exam. Right atrial size is normal. The right atrium has mildly decreased in size since the prior echo exam. Great Vessels: The IVC is of normal diameter and collapses greater than 50% with a sniff. This suggests a low right atrial pressure of 3 mm Hg. Pericardium/ Pleura There is no pericardial effusion. There is no pleural effusion. MMode/2D Measurements & Calculations LVIDd: 6.5 cm LA A2 area: 24.3 cm2 LVIDs: 5.1 cm LA A4 area: 19.3 cm2 FS: 22.2 % LA length (vol): 5.2 cm IVSd: 0.86 cm LA vol: 76.6 ml LVPWd: 0.66 cm LA vol index: 32.8 ml/m2 LV alvarado. diameter/BSA (cm/m^2): 2.8 LV sys. diameter/BSA (cm/m^2): 2.2 RA long axis: 5.8 cm RVD1 (basal): 4.3 cm RA area: 22.0 cm2 TAPSE: 3.4 cm RA vol: 70.5 ml RA : 30.2 ml/m2 IVC diam: 1.4 cm Reading Physician:05:00 PM
== END ==
PROVIDERS: PCP Student in an Organized Health Care Education/Training Program; Referring Provider Nurse Practitioner; Visit Provider Nurse Practitioner
DX: I48.91 Unspecified atrial fibrillation (principal); I42.8 Other cardiomyopathies
CPT/HCPCS: 93307

== ENCOUNTER → 2020-12-04 10:14 | Outpatient (CLI) | payer MEDICARE, SELFPAY ==
[2020-12-04 12:09] LABS: Add Manual Diff / Slide Review NO; Basophils Absolute Auto 100 /uL (0-100); Eosinophils Absolute Auto 100 /uL (0-450); Eosinophils Percent Auto 2.4 % (2-4); Hematocrit 39.2 % (41-53); Hemoglobin 13.2 g/dL (13.5-17.5); Lymphocytes Absolute Auto 1500 /uL (1100-4500); Lymphocytes Percent Auto 27.4 % (25-40); Mean Corpuscular HGB Conc 33.5 % (30-36); Mean Corpuscular Hemoglobin 32.1 PG (26-34); Mean Corpuscular Volume 95.8 fL (80-100); Monocytes Absolute Auto 400 /uL (0-900); Monocytes Percent Auto 7.8 % (3-14); Neutrophils Absolute Auto 3400 /uL (1500-7000); Neutrophils Percent Auto 61.4 % (50-75); Platelet Count 172 X10^3/uL (150-400); White Blood Cell Count 5.5 X10^3/uL (4.5-11.0)
[2020-12-04 12:36] LABS: Alanine Aminotransferase 24 IU/L (<50); Albumin 4.2 g/dL (3.5-5.0); Albumin Globulin Ratio 1.8 (1.0-2.8); Alkaline Phosphatase 63 U/L (38-126); Aspartate Aminotransferase 27 IU/L (17-59); BUN Creatinine Ratio 24.1 (6-22); Bilirubin Total 0.4 mg/dL (0.2-1.3); Blood Urea Nitrogen 20 mg/dL (9-20); Calcium 8.9 mg/dL (8.4-10.2); Carbon Dioxide 21 mmol/L (22-32); Chloride 109 mmol/L (98-107); Estimated Glomerular Filt Rate > 60.0 mL/min (>60); Globulin 2.4 g/dL (1.7-4.1); Glucose 112 mg/dL (80-110); HEMOLYSIS < 15 (0-50); Potassium 4.2 mmol/L (3.4-5.1); Sodium 136 mmol/L (137-145); Total Protein 6.6 g/dL (6.3-8.2)
== END ==
PROVIDERS: PCP Family Medicine; Referring Provider Nurse Practitioner; Visit Provider Nurse Practitioner
DX: I26.02 Saddle embolus of pulmonary artery with acute cor pulmonale (principal); I21.4 Non-ST elevation (NSTEMI) myocardial infarction; I48.91 Unspecified atrial fibrillation; I42.8 Other cardiomyopathies
CPT/HCPCS: 36415; 80053; 85025

== ENCOUNTER → 2020-12-19 08:27 | Outpatient (CLI) | payer MEDICARE, SELFPAY ==
--- NOTE | 2020-12-19 | DI.US.S_ITS ---
LIMITED ULTRASOUND OF LEFT BREAST: 12/19/2020 CLINICAL: Palpable left breast lump. Comparison is made to exam dated: 12/19/2020 [facility]. Real-time and continuous wave Doppler ultrasound of the left breast retroareolar were performed. There is gynecomastia in the left breast that correlates with mammography and palpable area. No other focal abnormalities were seen to correspond to the palpable abnormality. IMPRESSION: BENIGN Asymmetric left breast gynecomastia is present and may be symptomatic. No sonographic evidence of additional nodule to correlate with the palpable abnormality or screening mammography finding. Clinical follow up could be considered if there are ongoing concerns. Findings and recommendations were conveyed to the patient at time of exam. Electronically Signed By: Miranda galindo/:12/19/2020 10:29:11 letter sent: Normal Exam Ultrasound BI-RADS: 2 Benign
--- NOTE | 2020-12-19 | DI.MG.S_ITS ---
MALE BILATERAL DIGITAL DIAGNOSTIC MAMMOGRAM 3D/2D: 12/19/2020 CLINICAL: Left breast pain. No prior exams were available for comparison. There is gynecomastia in both breasts, left greater than right. There is a possible 7 mm oval asymmetry with a partially indistinct and partially circumscribed margin in the left breast at 1 o'clock in the retroareolar region. This possibly correlates as palpated. No other significant masses, calcifications, or other findings are seen in either breast. IMPRESSION: INCOMPLETE: NEEDS ADDITIONAL IMAGING EVALUATION The possible 7 mm oval asymmetry in the left breast may correlate with the palpable abnormality, but remains indeterminate. An ultrasound is recommended. This was performed immediately following this exam. This exam was interpreted at Station ID: [id number]. NOTE: For mammograms, a report in lay terms will be sent to the patient. Approximately 15% of breast malignancies will not be visualized mammographically. In the management of a palpable breast mass, a negative mammogram must not discourage biopsy of a clinically suspicious lesion. Electronically Signed By: Miranda galindo/:12/19/2020 09:11:49 ACR BI-RADS Category 0: Incomplete [id number]
== END ==
PROVIDERS: PCP Family Medicine; Referring Provider Family Medicine; Visit Provider Family Medicine
DX: N64.4 Mastodynia (principal); N64.89 Other specified disorders of breast; N63.0 Unspecified lump in unspecified breast
CPT/HCPCS: 76642; 77066; G0279

== ENCOUNTER → 2021-06-10 07:55 | Outpatient (CLI) | payer MEDICARE, SELFPAY ==
[2021-06-10 08:49] LABS: Alanine Aminotransferase 26 IU/L (<50); Albumin 4.4 g/dL (3.5-5.0); Albumin Globulin Ratio 1.8 (1.0-2.8); Alkaline Phosphatase 62 U/L (38-126); Aspartate Aminotransferase 29 IU/L (17-59); BUN Creatinine Ratio 18.3 (6-22); Bilirubin Total 0.8 mg/dL (0.2-1.3); Blood Urea Nitrogen 19 mg/dL (9-20); Calcium 9.1 mg/dL (8.4-10.2); Carbon Dioxide 27 mmol/L (22-32); Chloride 105 mmol/L (98-107); Cholesterol 135 mg/dL (140-199); Estimated Glomerular Filt Rate > 60.0 mL/min (>60); Globulin 2.5 g/dL (1.7-4.1); Glucose 101 mg/dL (80-110); HDL Cholesterol 61 mg/dL (40-60); HEMOLYSIS < 15 (0-50); LDL Cholesterol Calculated 60 mg/dL (<100); Potassium 4.6 mmol/L (3.4-5.1); Sodium 137 mmol/L (137-145); Total Protein 6.9 g/dL (6.3-8.2); Triglycerides 70 mg/dL (35-150)
== END ==
PROVIDERS: PCP Family Medicine; Referring Provider Internal Medicine Cardiovascular Disease; Visit Provider Internal Medicine Cardiovascular Disease
DX: I25.5 Ischemic cardiomyopathy (principal)
CPT/HCPCS: 36415; 80053; 80061

== ENCOUNTER → 2022-05-31 08:11 | Outpatient (CLI) | payer MEDICARE, SELFPAY ==
[2022-05-31 09:46] LABS: Add Manual Diff / Slide Review NO; Basophils Absolute Auto 0 /uL (0-100); Basophils Percent Auto 0.7 % (0-2); Eosinophils Absolute Auto 100 /uL (0-450); Eosinophils Percent Auto 2.2 % (2-4); Hemoglobin 12.8 g/dL (13.5-17.5); Lymphocytes Absolute Auto 1900 /uL (1100-4500); Mean Corpuscular HGB Conc 34.6 % (30-36); Mean Corpuscular Hemoglobin 32.5 PG (26-34); Mean Corpuscular Volume 93.7 fL (80-100); Monocytes Absolute Auto 500 /uL (0-900); Monocytes Percent Auto 9.9 % (3-14); Neutrophils Absolute Auto 2900 /uL (1500-7000); Neutrophils Percent Auto 52.2 % (50-75); Platelet Count 167 X10^3/uL (150-400); Red Blood Cell Count 3.95 X10^6/uL (4.5-5.9); Red Cell Distribution Width 13.3 % (11.6-14.8); White Blood Cell Count 5.5 X10^3/uL (4.5-11.0)
[2022-05-31 10:17] LABS: Alanine Aminotransferase 30 IU/L (<50); Albumin 3.8 g/dL (3.5-5.0); Albumin Globulin Ratio 1.6 (1.0-2.8); Alkaline Phosphatase 79 U/L (38-126); Aspartate Aminotransferase 29 IU/L (17-59); BUN Creatinine Ratio 19.1 (6-22); Bilirubin Total 0.6 mg/dL (0.2-1.3); Blood Urea Nitrogen 17 mg/dL (9-20); Calcium 8.6 mg/dL (8.4-10.2); Carbon Dioxide 25 mmol/L (22-32); Chloride 103 mmol/L (98-107); Estimated Glomerular Filt Rate > 60 mL/min (>60); Globulin 2.4 g/dL (1.7-4.1); Glucose 101 mg/dL (80-110); HEMOLYSIS < 15 (0-50); Potassium 4.4 mmol/L (3.4-5.1); Sodium 136 mmol/L (137-145); Total Protein 6.2 g/dL (6.3-8.2)
== END ==
PROVIDERS: PCP Family Medicine; Referring Provider Internal Medicine Cardiovascular Disease; Visit Provider Internal Medicine Cardiovascular Disease
DX: I48.0 Paroxysmal atrial fibrillation (principal)
CPT/HCPCS: 36415; 80053; 85025

== ENCOUNTER → 2024-07-11 07:54 | Outpatient (CLI) | payer OTHER, SELFPAY ==
--- NOTE | 2024-07-11 07:56 | DI.ECHO.S_ITS ---
[facility] +---------+ Hospital : : [address] : : [place] : : [id number] : : Phone: [phone] Echocardiogram Report + + :Name: STEPHENSTALYA Edith Study Date: 07/11/2024 Height: 76 in : :[facility] ReadingLocation: Weight: 240 lb : : Gender: Male BSA: 2.4 m2 : :: 1950 Age: 74 yrs BP: 119/78 mmHg: :Reason For Study: SYSTOLIC HEART FAILURE : :Ordering Physician: ELIS, : :TALYA Sim Performed By: Jamel Gentile : :Referring: TALYA GILLIS : + + Interpretation Summary The patient was in atrial fibrillation with heart rates between 58-96 bpm during the exam. Previously sinus rhythm with PACs. The left ventricle is normal in size. Previously mild to moderately dilated LV. Left ventricular ejection fraction is estimated to be 50 +/- 5%., Previous LV ejection fraction 40 to 45%. Hypokinetic basal inferior and basal inferior latera and basa posterior wall. In comparison to previous study, mid to distal lateral wall and mid to distal anterior wall hypokinesis improved. The right ventricle is normal in size and function. There is mild mitral regurgitation. There is trace tricuspid regurgitation. The right ventricular systolic pressure is estimated to be at least 32 mmHg based on an estimated right atrial pressure of 3 mm Hg. Procedure: A two-dimensional transthoracic echocardiogram with color flow and Doppler was performed. The study quality was technically good. There is no prior echocardiogram noted for this patient. The patient was in atrial fibrillation with heart rates between 58-96 bpm during the exam. Left Ventricle: The left ventricle is normal in size. There is normal left ventricular wall thickness. There is no thrombus. Left ventricular ejection fraction is estimated to be 50 +/- 5%. Hypokinetic basal inferior and basal inferior latera and basa posterior wall. In comparison to previous study, mid to distal lateral wall and mid to distal anterior wall hypokinesis improved. Diastolic function could not be accurately assessed due to atrial fibrillation. Right Ventricle: The right ventricle is normal in size and function. Atria: The left atrium is mildly dilated. The right atrium is mildly dilated. There is no Doppler evidence for an interatrial shunt. Mitral Valve: The mitral valve leaflets are slightly calcified. There is mild mitral regurgitation. Aortic Valve: The aortic valve is trileaflet. The aortic valve opens well. The aortic valve is slightly calcified. There is no aortic valve stenosis. No aortic regurgitation is present. Tricuspid Valve: The tricuspid valve is normal. There is trace tricuspid regurgitation. The right ventricular systolic pressure is estimated to be at least 32 mmHg based on an estimated right atrial pressure of 3 mm Hg. Pulmonic Valve: The pulmonic valve is not well visualized. There is no pulmonic valvular regurgitation. Great Vessels: The aortic root is mildly dilated. The dimensions of the ascending aorta are normal. The pulmonary artery is not well visualized, but is probably normal size. The inferior vena cava appeared normal. The IVC is of normal diameter and collapses greater than 50% with a sniff. This suggests a low right atrial pressure of 3 mm Hg. Pericardium/ Pleura There is no pericardial effusion. There is no pleural effusion. MMode/2D Measurements & Calculations LVIDd: 5.7 cm LVOT diam: 2.5 cm LVIDs: 4.4 cm Ao root diam: 4.2 cm FS: 22.5 % asc Aorta Diam: 3.5 cm EPSS: 0.65 cm IVSd: 0.88 cm LVPWd: 0.96 cm LV alvarado. diameter/BSA (cm/m^2): 2.4 LV sys. diameter/BSA (cm/m^2): 1.9 LA A2 area: 25.8 cm2 RA long axis: 5.5 cm LA A4 area: 20.4 cm2 RA area: 21.5 cm2 LA length (vol): 5.3 cm RA vol: 71.3 ml LA vol: 84.4 ml RA : 29.8 ml/m2 LA vol index: 35.3 ml/m2 IVC diam: 1.0 cm RVD1 (basal): 3.8 cm RVD2 (mid): 2.5 cm TAPSE: 2.1 cm Doppler Measurements & Calculations Ao V2 max: 113.6 cm/sec LVOT Max Roge: 79.6 cm/sec Ao V2 mean: 78.9 cm/sec LV V1 max P.5 mmHg Ao max P.2 mmHg LV V1 VTI: 15.2 cm Ao mean P.8 mmHg DENISE(I,D): 3.7 cm2 Ao V2 VTI: 20.5 cm DENISE(V,D): 3.5 cm2 sev ratio: 0.74 DENISE indexed to BSA (cm^2/m^2): 1.6 MV E max roge: 106.1 cm/sec TR max roge: 268.4 cm/sec MV A max roge: 28.4 cm/sec TR max P.8 mmHg MV E/A: 3.7 PA V2 max: 67.6 cm/sec Med Peak E' Roge: 10.2 cm/sec PA V2 mean: 53.9 cm/sec E/E' med: 10.4 PA mean P.2 mmHg MV dec time: 0.15 sec PA pr(Accel): 29.3 mmHg SV(LVOT): 76.3 ml Reading Physician:03:36 PM
== END ==
LOC: ECHO 07:54
PROVIDERS: PCP Family Medicine; Referring Provider Family Medicine; Visit Provider Family Medicine
DX: I34.0 Nonrheumatic mitral (valve) insufficiency (principal); I77.810 Thoracic aortic ectasia; I50.22 Chronic systolic (congestive) heart failure; I48.91 Unspecified atrial fibrillation
CPT/HCPCS: 93306